=== PATIENT | female | born 1985 | race Caucasian/White ===

== ENCOUNTER 2022-03-21 10:56 | Emergency (ER) | payer BC, SELFPAY ==
[2022-03-21 13:18] VITALS: BP 172/85; PULSE 85; RESP 13; TEMP 36.8; O2SAT 97; BMI 28.3
[2022-03-21 13:25] VITALS: BP 161/84; PULSE 84; RESP 18; O2SAT 96
[2022-03-21 13:44] LABS: Basophils % 0.1 %; Eosinophils # 0.1 10^3/uL (0.0-0.8); Eosinophils % 1.5 %; Hematocrit 39.7 % (37.0-47.0); Hemoglobin 13.7 g/dL (11.5-15.3); Lymphocytes # 2.6 10^3/uL (0.8-4.8); Lymphocytes % 35.7 %; Mean Corpuscular HGB Conc 34.5 g/dL (30.0-36.0); Mean Corpuscular Hemoglobin 27.7 pg (28.0-34.0); Mean Corpuscular Volume 80.2 fl (81-99); Monocytes # 0.3 10^3/uL (0.2-0.9); Neutrophils # 4.21 10^3/uL (1.8-7.7); Neutrophils % 58.3 %; Nucleated Red Blood Cells % 0 %; Platelet Count 295 10^3/cmm (130-400); Red Blood Count 4.95 10^6/uL (4.1-5.3); Red Cell Distribution Width 12.2 % (12.1-15.1); White Blood Count 7.2 10^3/uL (4.0-10.0)
--- NOTE | 2022-03-21 14:00 | PC.PHAR ---
pt states she takes care of her own medications-ext med history shows lisinopril 10mg daily filled on 12/30/21 pt states that was for covid pt states she no longer takes -ext med history shows prozac 10mg daily and hydroxyzine hcl 10 mg tid prn filled 12/30/21 30d/s pt states she no longer takes those medications-
[2022-03-21 14:07] LABS: Alanine Aminotransferase 24 U/L (0-33); Albumin Level 4.8 g/dL (3.5-5.2); Alkaline Phosphatase 95 IU/L (35-105); Anion Gap 15.7 (5-19); Aspartate Amino Transferase 24 U/L (0-32); Blood Urea Nitrogen 12 mg/dL (6-20); Calcium 9.9 mg/dL (8.5-10.5); Carbon Dioxide 25 mmol/L (22-29); Chloride 102 mmol/L (98-107); Creatinine Clr Calc Pharmacy 129.6546; Globulin 2.5 g/dL (1.3-4.6); Glomerular Filtration Rate 113.8 mL/min (90-130); Glucose 92 mg/dL (65-115); Lipase 35 U/L (13-60); Osmolality Calculated 287 mOsm/kg (285-295); Potassium 3.7 mmol/L (3.5-5.1); Sodium 139 mmol/L (136-145); Total Bilirubin 0.9 mg/dL (0.15-1.2); Total Protein 7.3 g/dL (6.6-8.7)
[2022-03-21 14:25] VITALS: BP 154/30; PULSE 80; RESP 18; TEMP 36.6; O2SAT 96
[2022-03-21 14:51] LABS: Add Urine Microscopic? NO; Charge for UA Resulting for Rev
[2022-03-21 14:53] LABS: Bilirubin Urine Neg (Negative); Blood Urine Neg (Negative); Glucose Urine UA Norm (Normal); Ketones Urine Negative (Negative); Leukocyte Esterase Urine Negative (Negative); Nitrate Urine Negative (Negative); Protein Urine Neg (Negative); Urine Appearance Clear (CLEAR); Urine Color Yellow (Yellow); Urobilinogen Urine Norm (Negative); pH Urine 5 (5-7)
[2022-03-21 15:19] VITALS: BP 151/84; PULSE 65; RESP 18; TEMP 36.6; O2SAT 96
--- NOTE | 2022-03-21 17:56 | ED_ITS ---
HPI - Abdominal Pain General: Chief Complaint: Abdominal Pain Stated Complaint: Vomiting, ABD pain Time Seen by Provider: 03/21/22 13:27 Source: patient Mode of arrival: ambulatory History of Present Illness: 36-year-old female presents emergency room complaining of abdominal pain epigastric discomfort over the last several month s. She has had different work-ups by her nurse practitioner that she sees regularly she does report that those are all negative there is been no imaging that she has had normal laboratory tests she not really taken anything. No hematochezia melena hematemesis cough cramps has not used any rlnq-hiq-[id number] or prescription medications for the symptoms. MD elicited complaint: abdominal pain Onset (ago): month(s) (3-4) Pain Consistency: intermittent Location: Epigastric Severity: mild Quality: aching Radiation: none Migration to: no migration Exacerbating factors: nothing Relieving factors: nothing Associated Symptoms: Denies anorexia, belching, bloating, change in bowel habits, change in stool character, chills, coffee ground emesis, constipation, GI cramping, diarrhea, dyspepsia, dysuria, excessive flatus, fever(s), heartburn, hematochezia, hematuria, hematemesis, fecal incontinence, loose stools, melena, nausea, poor appetite, syncope and vomiting Review of Systems Const: Denies: fever(s), chills, body aches, change in appetite, change in weight, fatigue or malaise ENMT: Denies: throat pain, ear or mastoid pain, nasal discharge or nasal congestion Card: Denies: chest pain, palpitations, irregular heart rhythm or syncope Resp: Denies: dyspnea, productive cough or non-productive cough GI: Reports: abdominal pain; Denies: nausea, vomiting, hematemesis, coffee ground emesis, heartburn, diarrhea, constipation, bloating, GI cramping, belching, excessive flatus, fecal incontinence, change in bowel habits, change in stool character, hematochezia or melena : Denies: dysuria or hematuria Skin/Breast: Denies: rash or pruritus PFS ED PFSH: Medical History Exposure to COVID-19 virus Lower respiratory infection Otitis media of both ears Social History (Reviewed 03/22/22 @ 05:58 by FERMIN Montes Smoking and tobacco status: former smoker Physical Exam Const: GENERAL APPEARANCE: cooperative and comfortable ORIENTATION/CONSCIOUSNESS: Yes awake, Yes oriented to person, Yes oriented to place and Yes oriented to time HENMT: COMMON NORMALS: normocephalic, atraumatic and hearing grossly normal bilaterally HEAD & SCALP: normocephalic and atraumatic Neck/C-Spine: COMMON NORMALS: no JVD Resp: COMMON NORMALS: normal respiratory effort, No retractions, No use of accessory muscles and clear to auscultation bilaterally AUSCULTATION: clear to auscultation bilaterally Cardio: COMMON NORMALS: no JVD, regular rate, regular rhythm and No murmurs present (Cardio) RATE: regular rate RHYTHM: regular rhythm GI: COMMON NORMALS: Soft to palpation and No hepatosplenomegaly present AUSCULTATION: Yes normoactive bowel sounds PALPATION: Yes Soft to palpation, No Tenderness to palpation present (GI), No Guarding due to palpation present (GI) and Yes No hepatosplenomegaly present Extremity: COMMON NORMALS: normal to inspection, capillary refill normal, no clubbing, cyanosis or edema, no calf tenderness and no pedal edema Neuro: SENSORIUM/ORIENTATION: Yes oriented to person, Yes oriented to place and Yes oriented to time Skin: COMMON NORMALS: no rashes or lesions noted GENERAL SKIN EXAM: no rashes or lesions noted Course Vital Signs: Vital signs: Vital Signs Temperature 97.9 F 03/21/22 15:19 Pulse Rate 65 03/21/22 15:19 Respiratory Rate 18 03/21/22 15:19 Blood Pressure 151/84 03/21/22 15:19 Pulse Oximetry 96 03/21/22 15:19 MDM - Abdominal Pain Medical Decision Making Benign abdominal exam normal labs. Refer to general surgery for further evaluation possible EGD. Patient has been taking omeprazole intermittently, changed to pantoprazole encouraged to take daily. Medical Records I reviewed the patient's medical records. Lab Data I reviewed the patient's lab results. : 03/21/22 13:35 03/21/22 13:35 Labs/Radiology: Laboratory Results WBC 7.2 10^3/uL (4.0-10.0) 03/21/22 13:35 RBC 4.95 10^6/uL (4.1-5.3) 03/21/22 13:35 Hgb 13.7 g/dL (11.5-15.3) 03/21/22 13:35 Hct 39.7 % (37.0-47.0) 03/21/22 13:35 MCV 80.2 fl (81-99) L 03/21/22 13:35 MCH 27.7 pg (28.0-34.0) L 03/21/22 13:35 MCHC 34.5 g/dL (30.0-36.0) 03/21/22 13:35 RDW 12.2 % (12.1-15.1) 03/21/22 13:35 Plt Count 295 10^3/cmm (130-400) 03/21/22 13:35 MPV 9.0 fL (7.4-10.4) 03/21/22 13:35 Neut % (Auto) 58.3 % 03/21/22 13:35 Lymph % (Auto) 35.7 % 03/21/22 13:35 [place] % (Auto) 4.0 % 03/21/22 13:35 Eos % (Auto) 1.5 % 03/21/22 13:35 Baso % (Auto) 0.1 % 03/21/22 13:35 Neut # (Auto) 4.21 10^3/uL (1.8-7.7) 03/21/22 13:35 Lymph # (Auto) 2.6 10^3/uL (0.8-4.8) 03/21/22 13:35 [place] # (Auto) 0.3 10^3/uL (0.2-0.9) 03/21/22 13:35 Eos # (Auto) 0.1 10^3/uL (0.0-0.8) 03/21/22 13:35 Baso # (Auto) 0.0 10^3/uL (0.0-0.1) 03/21/22 13:35 Nucleated RBC % (auto) 0 % 03/21/22 13:35 Nucleated RBCs # 0.0 /100WBC 03/21/22 13:35 Sodium 139 mmol/L (136-145) 03/21/22 13:35 Potassium 3.7 mmol/L (3.5-5.1) 03/21/22 13:35 Chloride 102 mmol/L (98-107) 03/21/22 13:35 Carbon Dioxide 25 mmol/L (22-29) 03/21/22 13:35 Anion Gap 15.7 (5-19) 03/21/22 13:35 BUN 12 mg/dL (6-20) 03/21/22 13:35 Creatinine 0.6 mg/dL (0.5-0.9) 03/21/22 13:35 GFR Calculation 113.8 mL/min (90-130) 03/21/22 13:35 Glucose 92 mg/dL (65-115) 03/21/22 13:35 Calculated Osmolality 287 mOsm/kg (285-295) 03/21/22 13:35 Calcium 9.9 mg/dL (8.5-10.5) 03/21/22 13:35 Total Bilirubin 0.9 mg/dL (0.15-1.2) 03/21/22 13:35 AST 24 U/L (0-32) 03/21/22 13:35 ALT 24 U/L (0-33) 03/21/22 13:35 Alkaline Phosphatase 95 IU/L (35-105) 03/21/22 13:35 Total Protein 7.3 g/dL (6.6-8.7) 03/21/22 13:35 Albumin 4.8 g/dL (3.5-5.2) 03/21/22 13:35 Globulin 2.5 g/dL (1.3-4.6) 03/21/22 13:35 Lipase 35 U/L (13-60) 03/21/22 13:35 Urine Color Yellow (Yellow) 03/21/22 14:45 Urine Appearance Clear (CLEAR) 03/21/22 14:45 Urine pH 5 (5-7) 03/21/22 14:45 Ur Specific [place] 1.020 (1.005-1.030) 03/21/22 14:45 Urine Protein Neg (Negative) 03/21/22 14:45 Urine Glucose (UA) Norm (Normal) 03/21/22 14:45 Urine Ketones Negative (Negative) 03/21/22 14:45 Urine Blood Neg (Negative) 03/21/22 14:45 Urine Nitrate Negative (Negative) 03/21/22 14:45 Urine Bilirubin Neg (Negative) 03/21/22 14:45 Urine Urobilinogen Norm mg/dL (Negative) 03/21/22 14:45 Ur Leukocyte Esterase Negative (Negative) 03/21/22 14:45 Discharge Plan Discharge Patient Disposition: Home Clinical Impression: Abdominal pain Condition: Stable Prescriptions: New pantoprazole 40 mg tablet,delayed release (DR/EC) 40 mg PO BID Qty: 60 0RF Discontinued omeprazole 20 mg capsule,delayed release(DR/EC) 20 mg PO QPM 0RF No Action doxycycline hyclate 100 mg capsule 100 mg PO BID 0RF Zyrtec 10 mg Tablet 10 mg PO DAILY PRN (Reason: Allergy Symptoms) 0RF albuterol sulfate 90 mcg/actuation HFA aerosol inhaler 2 puff INHALATION Q6H PRN (Reason: Shortness Of Breath) 0RF Claritin 10 mg Tablet 10 mg PO DAILY PRN (Reason: Allergy Symptoms) 0RF Discharge Orders: Discharge ED (Routine); Ordered 03/21/22 Ordered By: Ion Mar Referrals: Darren Ruano [Primary Care Provider] - Discharge Activity: Increase activity as tolerated Patient Instructions: Abdominal Pain (ED), Opioid Safety Coding Level of Care Code ED Lithography Contact Worker for Magui Gonsalez
--- NOTE | 2022-03-22 15:16 | DCPLANNER ---
Addendum entered by Deja Kowalski 03/24/22 19:01: production manager was notified that when clinic called patient to schedule an appointment, that patient declined appointment. Original Note: production manager had message to schedule a follow up appointment for patient with general surgery. production manager sent patients information to the front office staff at general surgery. Patients information will be printed and reviewed. Clinic will call patient with appointment information.
== END 2022-03-21 15:20 | disposition home or self-care (01) ==
PROVIDERS: Physician Assistant; Emergency Provider Family Medicine; PCP Family Medicine
DX: R10.9 Unspecified abdominal pain (principal); Z87.891 Personal history of nicotine dependence
CPT/HCPCS: 80053; 81003; 83690; 85025; 99283

== ENCOUNTER → 2023-03-01 14:06 | Outpatient (BNVA) | payer BC, SELFPAY | PROVIDERS: PCP Family Medicine; Referring Provider Nurse Practitioner Family; Visit Provider Specialist | DX: M65.4 Radial styloid tenosynovitis [de Quervain] (principal) | CPT/HCPCS: 73110 ==

== ENCOUNTER 2023-03-31 05:30 | Day surgery (SDC) | payer BC, SELFPAY ==
[2023-03-29 12:34] VITALS: BMI 27.4
--- NOTE | 2023-03-29 12:55 | ANES.PREANE2 ---
Pre-Anesthetic Assessment Height/Weight: Height 1.63 m Weight 72.575 kg Operation Date: 03/31/23 07:00 Proposed Procedures p RIGHT DE QUERVAINS RELEASE 66797,M65.4(Right) - Dina Ellis MD Familial anesthetic complications: none Social No alcohol Exam alert, oriented x 3, clear to auscultation bilaterally and regular rate & rhythm Airway Mallampati: Class II Dentition: full Anesthetic Plan ASA status: 2 Anesthesia: General Other: ALPHA-GAL allergy Risk of > 500 ml blood loss (7ml/kg in children): No Medications/Allergies Home Medications Medication Instructions Recorded Confirmed Last Taken Type epinephrine 0.3 mg/0.3 mL 0.3 mg IM Q4H PRN Allergic Reaction 03/01/23 03/29/23 Unknown History injection, auto-injector Allergies Allergy/AdvReac Type Severity Reaction Status Date / Time citalopram [From Celexa] Allergy ADR-Agitate Verified 03/01/23 14:22 d promethazine [From Phenergan] Allergy Unconscious Verified 03/01/23 14:22 shellfish derived Allergy ALGY-Hives Verified 03/01/23 14:22 Penicillins AdvReac unknown Verified 03/01/23 14:22 alpha gal Allergy ALGY-Anaphy Uncoded 03/01/23 14:25 laxis PFSH Anesthesia Medical History Exposure to COVID-19 virus Lower respiratory infection Otitis media of both ears Social History Smoking and tobacco status: former smoker Female Reproductive History Date of last menstrual period: 03/10/23 Data Anesthesia Cardiac Studies: No Data to Display
[2023-03-31] VITALS (10 sets, daily range): BP systolic 141–160; BP diastolic 88–105; PULSE 77–116; RESP 16–18; TEMP 36.2–36.6; O2SAT 96–100
[2023-03-31 06:15] LABS: OR HCG Qualitative Urine Negative (Negative)
[2023-03-31] MEDS: sodium chloride 0.9% 1,000 ML 30 ML IV (06:19)
[2023-03-31] MEDS: acetaminophen 1,000 MG/100 ML PIGGYBACK 400 MG IV (06:19)
--- NOTE | 2023-03-31 06:45 | P.ANESUD_ITS ---
Pre-Anesthetic Update Pre-Anesthetic Assessment: Date of Surgery/Procedure: 03/31/23 Preop Paz gnosis: Right de Quervain's tenosynovitis Proposed Procedure: Operation Date: 03/31/23 07:00 Proposed Procedures p RIGHT DE QUERVAINS RELEASE [id number],M65.4(Right) - Dina Ellis MD Any changes to Pre-Anesthetic Assessment?: No Last Intake: Intake Last Liquid Date 03/30/23 Last Liquid Time 22:30 Last Solid Date 03/30/23 Last Solid Time 21:00 Vitals: Temperature 97.6 F 03/31/23 05:59 Temperature Source Temporal Artery S can 03/31/23 05:59 Pulse Rate 77 03/31/23 05:59 Respiratory Rate 16 03/31/23 05:59 Blood Pressure 148/98 03/31/23 05:59 Blood Pressure Laura n 114 03/31/23 05:59 Pulse Oximetry 100 03/31/23 05:59 Oxygen Delivery Me thod Room Air 03/31/23 05:59 Exam: Pre-Anes Outpt Exam: alert, oriented x 3, clear to auscultation bilaterally and regular rate & rhythm Cardiac Studies: No Data to Display
--- NOTE | 2023-03-31 06:52 | P.HPUD_ITS ---
Surgery/Procedure H&P Update DATE OF PROCEDURE: March 31, 2023 DATE H&P PERFORMED: 03/01/23 H&P UPDATE INFORMATION: I have reviewed H&P completed within last 30 days, I have examined patient prior to procedure, No changes to prior documentation and H&P is in [facility] EMR on date indicated PREOP DIAGNOSIS: Right de Quervain's tenosynovitis PLANNED PROCEDURE: Operation Date: 03/31/23 07:00 Proposed Procedures p RIGHT DE QUERVAINS RELEASE [id number],M65.4(Right) - Dina Ellis MD Related Problem List Diagnoses (1) De Quervain's disease (tenosynovitis):
[2023-03-31] MEDS: ceFAZolin 2,000 MG in sodium chloride 0.9% (plus) 50 ML 100 MG IV (06:58)
--- NOTE | 2023-03-31 08:03 | PM.OP ---
Operative Report Date of procedure: March 31, 2023 Pre-op diagnosis: Right de Quervain's tenosynovitis Post-op diagnosis: Right de Quervain's tenosynovitis Post-op findings: Tenosynovitis with fluid within de Quervain's canal Procedure done: Right wrist de Quervain's tenosynovitis release Pathology: none sent Surgeon: Dina Ellis Lime Burner: None Anesthesia: General (Per LMA, ASA 2, alpha gal) Estimated blood loss (mL): 1 Tourniquet time (min): 20 (At 250 mmHg) IV fluids (mL): 600 Urine output (mL): 0 (No Valdez) Complications: None Disposition: PACU (Then return to same-day surgery for discharge to home) Brief History: This is a new 37 year old female patient presenting for right de Quervain's release at the wrist. Patient states that it has been occurring for 2 months following a structure falling on her. Patient has knots to the wrist that are painful. Patient states the majority of the pain is to the base of the thumb and over de Quervain's canal. Patient states the pain is aching, sharp, stabbing, and pinching depending how she moves her hand. Patient has tried anti-inflammatories with out improvement. Patient has utilized braces however this made the pain worse.? When she was seen in the office, discussion of surgical intervention was accomplished. She was advised of the risks and complications associated with de Quervain's release. Questions were answered and consents were signed. Procedure: The patient was brought to the operating theater. Anesthesia provided general anesthesia per LMA. The patient's right upper extremity was prepped and draped in usual fashion utilizing DuraPrep. It was draped free. The arm was exsanguinated, and tourniquet was elevated to 250 mmHg for a total tourniquet time of 20 minutes. Prior to the surgical procedure beginning, surgical pause was accomplished. At this time, we confirmed administration of IV Ancef prophylactically as well as the patient's identity, and procedure planned. Additionally, confirmation was obtained that appropriate Alpha Gal measures were taken. The radial styloid was palpated and an incision was made horizontally approximately 1 cm proximal to the tip of the radial styloid. Dissection continued through the skin and dermis but following that soft tissue blunt dissection was accomplished to prevent injury to the superficial radial nerve branches in the area. We were able to retract these branches and the first dorsal compartment was visualized. [The fibrous tissue over the first dorsal compartment was noted to be quite thickened and erythematous. This was released longitudinally using a combination of scalpel and scissors. There was fluid within this canal. We then confirmed that each of the tendons had been released. Both the abductor pollicis longus tendons and extensor pollicis brevis tendons were identified. Evaluation of de Quervain's canal demonstrated no auxiliary tendons. These were released at least a centimeter distal to the radial styloid and proximally as well. There was no further compression across the tendons. The tendons were pulled up out of the tunnel for evaluation. Following this, the wound was irrigated. Attention was then directed to closure. Closure was accomplished with 4-0 Monocryl in with 1 suture in the subcutaneous tissues and a running subcuticular closure was accomplished. We did injected the wound with half percent Marcaine plain for local anesthetic. This was followed by Dermabond, Steri-Strips, and OpSite. We then placed fluffed fluffs, sterile soft roll, and an Bony wrap. Tourniquet was released after 20 minutes at 250 mmHg. Patient was returned to Recovery Room in a satisfactory condition and will be discharged home to follow-up with me in the office. There were no specimens and no complications. Related Problem List Diagnoses (1) De Quervain's disease (tenosynovitis):
[2023-03-31] MEDS: ondansetron 2 mg/ML SDV 2 mL 4 MG IVP (08:07)
--- NOTE | 2023-03-31 16:13 | ANE.PACU2 ---
Inpatient post-anesthesia follow up: Airway intact: Yes Vital signs: Temperature 97.9 F Pulse Rate 90 Respiratory Rate 18 Blood Pressure 150/90 Pulse Oximetry 98 Oxygen Delivery Me thod Room Air Oxygen Flow Rate 6 Fraction of Inspir ed Oxygen Hydration adequate: Yes Nausea and vomiting: No Pain level: 1 Mental status: Baseline
== END 2023-03-31 08:56 | disposition home or self-care (01) ==
PROVIDERS: Anesthesiology; PCP Nurse Practitioner Family; Visit Provider Specialist
PROC: (CPT 25000; principal; 2023-03-31 07:00)
DX: M65.4 Radial styloid tenosynovitis [de Quervain] (principal); Z91.014 Allergy to mammalian meats; E74.29 Other disorders of galactose metabolism; Z87.891 Personal history of nicotine dependence
CPT/HCPCS: 25000; 81025; 84703; J0131; J0690; J1100; J2405; J2704; J3010; J3490; J7030